=== PATIENT | female | born 1980 | race African-American/Black ===

== ENCOUNTER 2017-08-02 22:30 | Emergency (ER) | payer OTHER ==
[~2017-08-02] VITALS: Ht 162.6 cm; Wt 95.3 kg
[~2017-08-02 22:30] MED LIST: ALBUTEROL INHAL17 GM IH; AMRIX15 MG PO; AZITHROMYCIN 2250 MG PO; BACTRIM DS TAB1 EACH PO; CIPROFLOXACIN500 M1 PO; FLONASE 0.05%50 MCG NS; HYDROCODON-ACE1 EAC7 PO; IBUPROFEN 600600 M1 PO; IBUPROFEN 800800 M1 PO; MECLIZINE 25 MG25 M1 PO; NAPROSYN500 MG PO; NOHOMEMEDICATIONS; NORCO 5-325 TA1 EACH PO; PHENERGAN 25 MG25 M1 PO; PREDNISONE50 MG PO; TESSALON PERLE100 MG PO; ZOFRAN ODT4 MG PO; ZOFRAN4 MG PO; ZPAK PO
[2017-08-02 22:54] LABS: URINE BILIRUBIN NEGATIVE (Negative); URINE BLOOD TRACE (Negative); URINE CLARITY CLEAR; URINE COLOR YELLOW; URINE GLUCOSE-RANDOM* NEGATIVE (Negative); URINE KETONES NEGATIVE (Negative); URINE LEUKOCYTES 1+ (Negative); URINE NITRITE NEGATIVE (Negative); URINE PROTEIN (DIPSTICK) NEGATIVE (Negative); URINE SPECIFIC GRAVITY >= 1.030 (1.005-1.035); URINE UROBILINOGEN 0.2 E.U./dl (0.2-1.0)
[2017-08-02 22:58] LABS: BASOPHILS 1.1 % (0.0-2.0); EOSINOPHILS 0.6 % (0.0-3.0); HEMATOCRIT 36.4 % (37.0-47.0); HEMOGLOBIN 12.2 gm/dL (12.0-15.0); LYMPHOCYTES 36.4 % (24.0-44.0); MCH 30.8 pg (26.0-34.0); MCHC 33.6 g/dL (28.0-37.0); MCV 91.8 fL (80.0-100.0); MONOCYTES 4.8 % (1.0-8.0); PLATELET COUNT 291 thou/uL (150-400); POLYS 57.1 % (36.0-66.0); RBC 3.97 mil/uL (4.20-5.00); RDW 12.9 % (10.5-14.5)
[2017-08-02 23:03] LABS: ANION GAP 9 mmol/L (7-16); BUN 9 mg/dL (7-18); CALCIUM 8.9 mg/dL (8.5-10.1); CHLORIDE 104 mmol/L (98-107); CO2 23 mmol/L (21-32); CREATININE 0.8 mg/dL (0.6-1.0); GLUCOSE 170 mg/dL (74-106); POTASSIUM 3.5 mmol/L (3.5-5.1); SODIUM 136 mmol/L (136-145)
[2017-08-02 23:04] LABS: MUCUS >6 Heavy strn/LPF (None Seen); SQUAMOUS >10 Many /LPF (0-3)
[2017-08-02 23:05] LABS: CASTS None Seen /LPF (None Seen); CRYSTALS None Seen /LPF (None Seen); URINE RBC 3-10 Few /HPF (0-2); URINE WBC 6-15 Few /HPF (0-5)
[2017-08-02 23:06] LABS: BACTERIA >30 Many /HPF (None Seen)
[2017-08-02] MEDS ORDERED: LOTENSIN20 MG PO (23:07)
[2017-08-02] MEDS ORDERED: LIPITOR 20 MG T20 M1 PO (23:07)
[2017-08-02 23:08] LABS: ALBUMIN 3.8 g/dL (3.4-5.0); DIRECT BILIRUBIN < 0.1 mg/dL (<0.1-0.3); SGOT 13 U/L (15-37); SGPT 20 U/L (30-65); TOTAL BILIRUBIN 0.2 mg/dL (<0.1-1.0); TOTAL PROTEIN 7.7 g/dL (6.4-8.2)
[2017-08-02] MEDS ORDERED: BRETHINE2.5 MG PO (23:09)
[2017-08-03] MEDS ORDERED: NORCO 5-325 TA1 EACH PO (00:52)
[2017-08-03] MEDS ORDERED: ZOFRAN ODT4 MG PO (00:56)
[2017-08-03 01:33] VITALS: BP 144/106
== END 2017-08-03 01:37 | disposition home or self-care (01) ==
LOC: ER 22:30
PROVIDERS: Emergency Medicine
DX: N83.201 Unspecified ovarian cyst, right side (principal); R19.7 Diarrhea, unspecified; J45.909 Unspecified asthma, uncomplicated; I10 Essential (primary) hypertension; Z88.0 Allergy status to penicillin; Z88.1 Allergy status to other antibiotic agents

== ENCOUNTER 2018-02-17 04:56 | Emergency (ER) | payer OTHER ==
[~2018-02-17] VITALS: Ht 162.6 cm; Wt 95.3 kg
[~2018-02-17 04:56] MED LIST changes: +BRETHINE2.5 MG PO; +LIPITOR 20 MG T20 M1 PO; +LOTENSIN20 MG PO
[2018-02-17 05:28] LABS: ABSOLUTE NEUTROPHILS 2.6 thou/uL (1.4-8.2); EOSINOPHILS 0.5 % (0.0-3.0); HEMATOCRIT 35.9 % (37.0-47.0); HEMOGLOBIN 12.3 gm/dL (12.0-15.0); LYMPHOCYTES 38.9 % (24.0-44.0); MCH 30.8 pg (26.0-34.0); MCHC 34.2 g/dL (28.0-37.0); MCV 90.1 fL (80.0-100.0); MONOCYTES 8.3 % (1.0-8.0); PLATELET COUNT 256 thou/uL (150-400); POLYS 51.3 % (36.0-66.0); RBC 3.99 mil/uL (4.20-5.00); RDW 12.5 % (10.5-14.5); WBC 5.1 thou/uL (4.0-11.0)
[2018-02-17 05:30] LABS: ANION GAP 10 mmol/L (7-16); BUN 8 mg/dL (7-18); CALCIUM 8.7 mg/dL (8.5-10.1); CHLORIDE 102 mmol/L (98-107); CO2 25 mmol/L (21-32); CREATININE 0.7 mg/dL (0.6-1.0); GLUCOSE 213 mg/dL (74-106); POTASSIUM 3.8 mmol/L (3.5-5.1); SODIUM 137 mmol/L (136-145)
[2018-02-17 05:39] LABS: TROPONIN-I <0.06 ng/mL (<0.06)
[2018-02-17 07:00] VITALS: BP 153/104
--- NOTE | 2018-02-17 08:16 | EKG ---
[place] [address] [facility] [place] [address] ELECTROCARDIOGRAM REPORT Name: LORNA GARCIA Room #: [facility] [id number] Admission: 02/17/18 Attend Phys: Discharge: 02/17/18 Date of : 76 Report #: [id number] THIS REPORT FOR: //name// [facility] ED Test Date: 2018-02-17 Test Time: 05:06:19 Pat Name: LORNA GARCIA Department: Room: Gender: F Production Repairer: JERRY : 1980 Requested By: Isaac Sun Order Number: [id number] MD: Jelani Lemus Measurements Intervals [place] Rate: 87 P: 42 DC: 160 QRS: 25 QRSD: 75 T: 56 QT: 364 QTc: 438 Interpretive Statements Sinus rhythm Normal tracing Compared to ECG 04/20/2016 17:40:52 No significant change was found Electronically Signed On 02-17-2018 8:16:20 TRANSLATOR AND INTERPRETER by Jelani Lemus [email or web address] <ELECTRONICALLY SIGNED> By: Jelani Lemus MD, [facility] 02/17/18 0816 [phone] Jelani Lemus MD, FACC /EPI
== END 2018-02-17 07:01 | disposition home or self-care (01) ==
LOC: ER 04:56
PROVIDERS: Emergency Medicine
DX: R07.89 Other chest pain (principal); I10 Essential (primary) hypertension; J45.909 Unspecified asthma, uncomplicated; E78.00 Pure hypercholesterolemia, unspecified; Z88.0 Allergy status to penicillin; Z88.1 Allergy status to other antibiotic agents

== ENCOUNTER 2020-12-06 19:07 | Emergency (ER) | payer OTHER ==
[~2020-12-06] VITALS: Ht 162.6 cm; Wt 88.5 kg
[2020-12-06 21:21] LABS: ABSOLUTE NEUTROPHILS 3.3 thou/uL (1.4-8.2); BASOPHILS 0.4 % (0.0-2.0); EOSINOPHILS 0.3 % (0.0-3.0); HEMOGLOBIN 10.5 gm/dL (12.0-15.0); LYMPHOCYTES 39.5 % (24.0-44.0); MCH 28.4 pg (26.0-34.0); MCHC 31.8 g/dL (28.0-37.0); MCV 89.4 fL (80.0-100.0); PLATELET COUNT 349 thou/uL (150-400); POLYS 49.8 % (36.0-66.0); RBC 3.69 mil/uL (4.20-5.00); RDW 14.7 % (10.5-14.5); WBC 6.7 thou/uL (4.0-11.0)
[2020-12-06 21:44] LABS: CALCIUM 8.8 mg/dL (8.5-10.1); CREATININE 0.8 mg/dL (0.6-1.0)
[2020-12-06 21:45] LABS: ALBUMIN 3.5 g/dL (3.4-5.0); TOTAL BILIRUBIN 0.2 mg/dL (0.2-1.0); TOTAL PROTEIN 7.4 g/dL (6.4-8.2)
[2020-12-06 21:46] LABS: URINE BILIRUBIN NEGATIVE (Negative); URINE BLOOD 3+ (Negative); URINE CLARITY CLEAR; URINE COLOR YELLOW; URINE GLUCOSE-RANDOM* NEGATIVE (Negative); URINE KETONES 1+ (Negative); URINE LEUKOCYTES-REFLEX NEGATIVE (Negative); URINE NITRITE-REFLEX NEGATIVE (Negative); URINE PROTEIN (DIPSTICK) TRACE (Negative); URINE SPECIFIC GRAVITY >= 1.030 (1.005-1.035); URINE UROBILINOGEN 0.2 E.U./dl (0.2-1.0)
[2020-12-06 22:06] LABS: SQUAMOUS 4-10 Moderate /LPF (0-3); URINE RBC 3-10 Few /HPF (NONE SEEN); URINE WBC-REFLEX 0-5 Rare /HPF (0-5)
[2020-12-06 22:07] LABS: CASTS None Seen /LPF (None Seen); CRYSTALS None Seen /LPF (None Seen); MUCUS 4-6 Moderate strn/LPF (None Seen)
[2020-12-06] MEDS ORDERED: KEPPRA 500 MG500 M1 PO (22:49)
[2020-12-06] MEDS ORDERED: BACTRIM DS TAB1 EACH PO (22:50)
[2020-12-07 00:54] VITALS: BP 144/90
--- NOTE | 2020-12-07 07:22 | EKG ---
[place] [address] [facility] [address] ELECTROCARDIOGRAM REPORT Name: LORNA GARCIA [facility] [id number] Admission: 12/06/20 Attend Phys: Discharge: 12/07/20 Date of : [birth year] Report #: [id number] [facility] ED Test Date: 2020-12-06 Test Time: 20:41:56 Pat Name: LORNA GARCIA Department: Room: Gender: F Actuarial Clerk: anastasiya robert : 1980 Requested By: Kunal Engle Order Number: [id number] MD: Taco Quick Measurements Intervals [place] Rate: 91 P: 51 RI: 149 QRS: 39 QRSD: 71 T: 32 QT: 357 QTc: 440 Interpretive Statements Sinus rhythm Baseline wander in lead(s) II,III,aVF Compared to ECG 02/17/2018 05:06:19 No significant changes Electronically Signed On 12-07-2020 7:21:56 CDT by Taco Quick [email or web address] <ELECTRONICALLY SIGNED> By: Taco Quick MD, [facility] 12/07/20720 40 40 Taco Quick MD, FACC /EPI
== END 2020-12-07 01:20 | disposition admitted as inpatient to this hospital (09) ==
LOC: ER 19:07
PROVIDERS: Emergency Medicine
DX: G43.909 Migraine, unspecified, not intractable, without status migrainosus (principal); G40.89 Other seizures; N39.0 Urinary tract infection, site not specified; M79.10 Myalgia, unspecified site; J45.909 Unspecified asthma, uncomplicated; I10 Essential (primary) hypertension; Z79.891 Long term (current) use of opiate analgesic; Z79.899 Other long term (current) drug therapy; Z88.0 Allergy status to penicillin; Z88.1 Allergy status to other antibiotic agents; Z91.02 Food additives allergy status